=== PATIENT | female | born 1995 | race Two or more races ===

== ENCOUNTER 2022-02-09 07:29 | Emergency (ER) | payer BC ==
[~2022-02-09] VITALS: Ht 162.6 cm; Wt 95.7 kg
[2022-02-09 08:42] LABS: BASOPHILS % (AUTO) 0.6 % (0.0-2.0); EOSINOPHILS % (AUTO) 1.2 % (0.0-6.0); HEMATOCRIT 42 % (33-45); HEMOGLOBIN 13.8 g/dL (11.5-14.8); LYMPHOCYTES # (AUTO) 1.8 K/uL (0.8-4.8); MEAN CORPUSCULAR HGB CONC 33 g/dl (31.0-36.0); MEAN CORPUSCULAR VOLUME 85 fL (82-100); MONOCYTES # (AUTO) 0.4 K/uL (0.1-1.30); MONOCYTES % (AUTO) 6.8 % (2.0-12.0); NEUTROPHILS # (AUTO) 4.1 K/uL (1.8-8.9); NEUTROPHILS % (AUTO) 63.4 % (43.0-81.0); PLATELET COUNT (AUTO) 282 K/uL (150-450); RED BLOOD CELL COUNT(AUTO) 4.86 MIL/uL (4.0-5.2); WHITE BLOOD COUNT (AUTO) 6.4 K/uL (4.3-11.0)
[2022-02-09 08:50] LABS: CARBON DIOXIDE 27 mmol/L (21-32); CHLORIDE 103 mmol/L (98-107); GLUCOSE 91 mg/dL (74-106); SODIUM SERUM 139 mmol/L (136-145); UREA NITROGEN, BLOOD 11 mg/dL (7-18)
--- NOTE | 2022-02-09 09:34 | NUR ---
BIBS, C/O SOB, PALPATIONS IN HEART, HEADACHE UPPER LEFT AREA OF HEAD, GENERALIZED OVERALL WEAKNESS NOTED
[2022-02-09 09:42] VITALS: BP 142/88
== END 2022-02-09 09:43 | disposition home or self-care (01) ==
LOC: ER 07:36
DX: R00.2 Palpitations (principal)
CPT/HCPCS: 36415; 71045-TC; 80048-TC; 84484-TC; 84702-TC; 85025-TC